=== PATIENT | male | born 1935 | race Caucasian/White ===

== ENCOUNTER 2022-07-13 11:03 | Observation (INO) | payer MEDICARE ==
[2022-07-13 11:35] LABS: #Lymphocytes 0.9 thou/uL (1.20-3.40); #Monocytes 0.4 thou/uL (0.11-0.59); #Neutrophils 5.9 thou/uL (1.40-6.50); %Basophils 0.3 % (0.0-1.0); %Eosinophils 0.7 % (0.0-10.0); %Lymphocytes 12.6 % (21.0-51.0); %Monocytes 5.2 % (0.0-10.0); %Neutrophils 81.2 % (42.0-75.0); Hemoglobin 13.4 g/dL (14.0-18.0); Mean Corpuscular HGB CONC 33.1 g/dL (32.0-36.0); Mean Corpuscular Hemoglobin 31.8 pg (27.0-31.0); Mean Platelet Volume 7.5 fL (7.4-10.4); Platelet Count 171 10x3/uL (130-400); RBC Distribution Width 13.7 % (11.5-14.5); Red Blood Cell (RBC) Count 4.21 mill/uL (4.70-6.10); White Blood Cell (WBC) Count 7.3 10x3/uL (4.8-10.8)
[2022-07-13 11:49] LABS: INR-International Normal Ratio 1.1
[2022-07-13 11:50] LABS: PTT 29.9 sec (22.9-36.1)
[2022-07-13 11:58] LABS: ALT (SGPT) 12 U/L (8-55); AST (SGOT) 18 U/L (5-34); Albumin 3.6 g/dL (3.4-4.8); Alkaline Phosphatase 52 U/L (40-110); Anion Gap 12 mmol/L (10-20); BUN (Urea Nitrogen) 21 mg/dL (8.4-25.7); Bilirubin, Total 1.6 mg/dL (0.2-1.2); Calc. Creatinine Clearance 0 mL/min (70-130); Carbon Dioxide 23 mmol/L (23-31); Chloride 105 mmol/L (98-107); Estimated GFR 70; Globulin 2.3 g/dL (2.4-3.5); Glucose 92 mg/dL (83-110); Protein, Total 5.9 g/dL (5.8-8.1); Sodium 136 mmol/L (136-145)
[2022-07-13] MEDS ORDERED: Aspirin Chewable 81 MG TAB ONE (12:02)
[2022-07-13] MEDS ORDERED: Iopamidol-370 76% 500 ML 1 ML ONE (12:54)
[2022-07-13] MEDS ORDERED: Acetaminophen 325 MG TAB PO PRN (13:04)
[2022-07-13] MEDS ORDERED: Ondansetron ODT 4 MG TAB PO PRN (13:04)
[2022-07-13] MEDS ORDERED: Ondansetron PF 4 MG/2 ML Vial IVP PRN (13:04)
[2022-07-13] MEDS ORDERED: Enoxaparin Sodium 40 MG/0.4 ML SYRINGE SC SCH (13:15)
[2022-07-13 13:35] LABS: Hemoglobin A1c 5.3 % (4.0-6.0)
[2022-07-13 14:27] LABS: SARS-CoV-2 NAA Rapid Test Not Detected (NotDetected)
[2022-07-13] MEDS ORDERED: Clopidogrel Bisulfate 75 MG TAB PO SCH (17:45)
[2022-07-13 18:14] VITALS: BP 125/62; TEMP 98.6
[2022-07-13] MEDS ORDERED: Clopidogrel Bisulfate 75 MG TAB ONE (18:15)
[2022-07-13] MEDS ORDERED: Atorvastatin Calcium 40 MG TAB PO SCH (21:00)
[2022-07-14] MEDS ORDERED: Clopidogrel Bisulfate 75 MG TAB PO SCH (09:00)
[2022-07-14] MEDS ORDERED: Aspirin 81 mg Enteric Coated Tablet PO SCH (09:00)
== END 2022-07-13 21:25 | disposition home or self-care (01) ==
LOC: ERS 11:03 → ERHOLD 13:13
PROVIDERS: ADMIT Internal Medicine; ATTEND Internal Medicine
DX: G45.9 Transient cerebral ischemic attack, unspecified (principal); I25.10 Atherosclerotic heart disease of native coronary artery without angina pectoris; I25.2 Old myocardial infarction; I10 Essential (primary) hypertension; E78.5 Hyperlipidemia, unspecified; K21.9 Gastro-esophageal reflux disease without esophagitis; Z79.82 Long term (current) use of aspirin; Z79.899 Other long term (current) drug therapy; Z95.5 Presence of coronary angioplasty implant and graft; Z20.822 Contact with and (suspected) exposure to COVID-19
CPT/HCPCS: 70450; 70496; 70498; 70551; 71045; 83036; 83735; 84484; 85610; 85730; 93005; 94760; 99285; G0378; U0002; 80053; 84443; 85025; Q9967